=== PATIENT | male | born 1955 | race Caucasian/White ===

== ENCOUNTER 2021-11-29 18:17 | Inpatient (IN) | payer MEDICARE, OTHER ==
[~2021-11-29] VITALS: Ht 172.7 cm; Wt 92.5 kg
--- NOTE | 2021-11-29 18:40 | NUR ---
TONY FROM HOME FOR PSYCH EVAL, DAUGHTER IS SCARED THAT PT MIGHT HURT HIMSELF, PT DID NOT VERBALIZE SI. THE PATIENT DENIES HI. DENIES HAVING VISUAL/AUDITORY HALLUCINATIONS AT THIS TIME. IN ROOM AIR AND DENIES SOB. RESPIRATION REGULAR AND UNLABORED. DENIES PAIN. WILL CONTINUE TO MONITOR THE PATIENT. SITTER AT THE BEDSIDE.
--- NOTE | 2021-11-29 18:48 | NUR ---
COVID TEST COLLECTED AND SENT
--- NOTE | 2021-11-29 18:50 | NUR ---
IV LINE IS ESTABLISHED, BLOOD SPECIMEN COLLECTED AND SENT TO THE LAB. THE LINE IS SALINE LOCKED.
--- NOTE | 2021-11-29 19:00 | NUR ---
PT UNABLE TO PROVIDE URINE AT THIS TIME, PROVIDED WITH WATER, DAUGHTER AT BEDSIDE ENCOURAGING HIM TO PROVIDE URINE SAMPLE
--- NOTE | 2021-11-29 19:04 | NUR ---
THE PATIENT IS TAKEN TO CT [facility]IA [facility]
--- NOTE | 2021-11-29 19:13 | NUR ---
THE PATIENT IS BACK FROM [facility]IA [facility]
[2021-11-29 19:20] LABS: SERUM AMMONIA 13 umol/L (11-32)
[2021-11-29 19:25] LABS: ALANINE AMINOTRANSFERASE 21 U/L (12-78); ALBUMIN 4.2 g/dL (3.4-5.0); ALKALINE PHOSPHATASE 128 U/L (46-116); ASPARTATE AMINOTRANSFERASE 9 U/L (15-37); BILIRUBIN,DIRECT 0.1 mg/dL (0.0-0.2); BILIRUBIN,TOTAL 0.5 mg/dL (0.2-1.0); CALCIUM, SERUM 9.5 mg/dL (8.5-10.1); CARBON DIOXIDE 26 mmol/L (21-32); CHLORIDE 105 mmol/L (98-107); CREATININE 1.4 mg/dL (0.6-1.3); GLUCOSE 118 mg/dL (74-106); SODIUM SERUM 143 mmol/L (136-145); TOTAL PROTEIN, SERUM 7.6 g/dL (6.4-8.2); UREA NITROGEN, BLOOD 19 mg/dL (7-18)
[2021-11-29 19:57] LABS: BASOPHILS # (AUTO) 0.1 K/uL (0.0-0.2); BASOPHILS % (AUTO) 0.8 % (0.0-2.0); EOSINOPHILS % (AUTO) 0.8 % (0.0-6.0); HEMATOCRIT 53 % (39-51); HEMOGLOBIN 17.7 g/dL (13.5-17.5); LYMPHOCYTES # (AUTO) 1.8 K/uL (0.8-4.8); LYMPHOCYTES % (AUTO) 18.8 % (20.0-44.0); MEAN CORPUSCULAR HGB CONC 34 g/dl (31.0-36.0); MEAN CORPUSCULAR VOLUME 93 fL (80-96); MONOCYTES # (AUTO) 0.8 K/uL (0.1-1.30); MONOCYTES % (AUTO) 8.6 % (2.0-12.0); NEUTROPHILS # (AUTO) 6.8 K/uL (1.8-8.9); PLATELET COUNT (AUTO) 309 K/uL (150-450); RED BLOOD CELL COUNT(AUTO) 5.66 MIL/uL (4.5-6.0); WHITE BLOOD COUNT (AUTO) 9.5 K/uL (4.3-11.0)
[2021-11-29] MEDS ORDERED: IV NS 0.9% 1,000 ML BAG IV ONE (20:00)
[2021-11-29 20:26] LABS: EOSINOPHILS % (MANUAL) 1 % (0-4); LYMPHOCYTES % (MANUAL) 30 % (16-48); MONOCYTES % (MANUAL) 4 % (0-11.0); NEUTROPHILS % (MANUAL) 65 (42-76)
--- NOTE | 2021-11-29 21:01 | NUR ---
PT IS SLEEPING , EASILY AROUSABLE WITH VERBAL STIMULI. CONNECTED TO MONITOR. SITTER IN SIGHT. WILL CONTINUE TO MONITOR.
--- NOTE | 2021-11-30 00:56 | NUR ---
PROVIDED PT WITH FOOD AND DRINK. WILL CONTINUE TO MONITOR
--- NOTE | 2021-11-30 01:06 | NUR ---
URINE SAMPLE COLLECTED AND SENT TO LAB
[2021-11-30] MEDS ORDERED: SIMV10TA98 PO (01:19)
[2021-11-30] MEDS ORDERED: LISI20TA30 PO (01:19)
--- NOTE | 2021-11-30 01:34 | NUR ---
report given to nathen melo for ricarda
[2021-11-30 02:55] LABS: BILIRUBIN,URINE NEGATIVE (NEGATIVE); COLOR,URINE YELLOW (YELLOW); LEUKOCYTE ESTERASE ,URINE NEGATIVE (NEGATIVE); NITRITE, URINE NEGATIVE (NEGATIVE); PROTEIN,URINE NEGATIVE (NEGATIVE); UGLUCOSE NEGATIVE (NEGATIVE); UROBILINOGEN,URINE 0.2 EU/dL (0.2)
[2021-11-30 03:37] VITALS: BP 152/95
--- NOTE | 2021-11-30 03:38 | NUR ---
PT TRANSPORTED TO UNIT ON WHEELCHAIR WITH EMT. PT IS IN STABLE CONDITION FOR TRANSPORT.
--- NOTE | 2021-11-30 03:40 | NUR ---
GPS ADMISSION NOTE PER HOLD, PATIENT BEING ADMITTED FROM ER FOR EXHIBITING BIZARRE AND STRANGE BEHAVIOR AT HOME AND SENDING BIZARRE TEXT MESSAGES AND VOICE MAILS TO HIS DAUGHTER STATING THAT HE FEELS LIKE HE IS IN HEAVEN. DAUGHTER MICHELE IS SCARED THAT HE MIGHT HURT HIMSELF. HE LIVES ALONE AT HOME. PATIENT CURRENTLY HAS A 5150 HOLD FOR GRAVE DISABILITY. UPON FACE TO FACE ASSESSMENT PATIENT IS A/O X 3 AT THIS TIME. PATIENT IS ON RA, TOLERATING WELL, NO SOB OR RESPIRATORY DISTRESS NOTED. BREATHING EVEN AND UNLABORED. PATIENT HAS A FLAT AFFECT, POOR EYE CONTACT, GUARDED, JITTERY, DISORGANIZED, AND APPEARS DISHEVELED. PATIENT STATES THAT HE'S DEPRESSED, DENIES ANY SUICIDAL IDEATION OR HOMICIDAL IDEATION A THIS TIME. PATIENT ADVISED OF HIS HOLD AND PATIENT RIGHTS BOOKLET GIVEN. PATIENT IS UNDER THE PSYCHIATRIC CARE OF DR. SOLO AND MEDICAL CARE OF KARLA BEAN. ALL BELONGINGS INVENTORIED AND CHECKED FOR CONTRABAND. ALL CONTRABAND REMOVED AND STORED IN PATIENT HALLWAY LOCKER. ALL NECESSARY PAPER WORK SIGNED AND COMPLETED. PATIENT ORIENTED TO ROOM, FLOOR, RN, AND COMSEC MANAGER. SAFETY MEASURES IMPLEMENTED: BED LOCKED AND IN LOWEST POSITION, CALL LIGHT WITHIN REACH, SIDE RAILS UP X 2, AND BED ALARM ON. WILL MONITOR PATIENT Q 15 MIN FOR PATIENT SAFETY AND MONITOR BEHAVIOR.
[2021-11-30] MEDS ORDERED: AMLO-213 PO (04:19)
[2021-11-30] MEDS ORDERED: MAG HYDROX/AL HYDROX/SIMETH 30 ML UDC PO PRN (04:30)
[2021-11-30] MEDS ORDERED: ACETAMINOPHEN 325 MG TABLET PO PRN (04:30)
[2021-11-30] MEDS ORDERED: ZOLPIDEM TARTRATE 5 MG TABLET PO PRN (04:30)
[2021-11-30] MEDS ORDERED: MAGNESIUM HYDROXIDE 30 ML UDC PO PRN (04:30)
[2021-11-30] MEDS ORDERED: LORAZEPAM 1 MG TABLET PO PRN (04:30)
[2021-11-30] MEDS ORDERED: BLOOD SUGAR DIAGNOSTIC 1 EACH STRIP IN ONE (04:30)
[2021-11-30 08:00] VITALS: BP 126/90
[2021-11-30 16:00] VITALS: BP 134/74
[2021-11-30] MEDS: SIMVASTATIN 10 MG TABLET PO SCH (18:03)
--- NOTE | 2021-11-30 19:13 | NUR ---
RN-NOTES PATIENT VISIBLE IN THE UNIT CALM,COOPERATIVE,DENIES SI/HI. ABLE TO MAKE NEEDS KNOWN TO THE STAFF. AMBULATORY STEADY GAIT.ALL NEEDS ATTENDED AND MET. WILL ENDORSE TO INCOMING SHIFT FOR CONTINUITY OF CARE.
--- NOTE | 2021-11-30 19:30 | NUR ---
GPS RN NOTE, RECEIVED PATIENT AWAKE AND IN BED, NO S/S OR COMPLAINTS OF PAIN AT THIS TIME. PATIENT IS DISPLAYING NO S/S OF APPARENT DISTRESS AT THIS TIME. PATIENT BREATHING IS UNLABORED WITH EQUAL RISE AND FALL OF THE CHEST. PATIENT IS ALERT AND ORIENTED X 3 ON ROOM AIR WITH A SPO2 96%. PATIENT IS COMPLIANT WITH MEDICATIONS, ANXIOUS, RESTLESS, AND COOPERATIVE. PATIENT DENIES SUICIDAL AND HOMICIDAL IDEATIONS AT THIS TIME. PATIENT ASSISTED WITH TURNING AND REPOSITIONING Q2HR AND PRN FOR COMFORT AND CIRCULATION. PATIENT HAS NO NEEDS AT THIS TIME. PATIENT EDUCATED ON THE USE OF THE CALL HICKS. PATIENT BED SIDE RAILS UP X 2 FOR SAFETY. PATIENT BED IS LOCKED, LOW, WITH BED ALARM ON. WILL CONTINUE TO MONITOR THIS PATIENT Q15 MINUTES WITH THE HELP OF STAFF TO MAINTAIN SAFETY.
[2021-11-30 20:13] VITALS: BP 147/95
[2021-12-01 07:29] LABS: BASOPHILS # (AUTO) 0.1 K/uL (0.0-0.2); BASOPHILS % (AUTO) 1.1 % (0.0-2.0); EOSINOPHILS % (AUTO) 1.4 % (0.0-6.0); HEMATOCRIT 48 % (39-51); HEMOGLOBIN 16.1 g/dL (13.5-17.5); LYMPHOCYTES # (AUTO) 2.1 K/uL (0.8-4.8); LYMPHOCYTES % (AUTO) 23.4 % (20.0-44.0); MEAN CORPUSCULAR HGB CONC 33 g/dl (31.0-36.0); MEAN CORPUSCULAR VOLUME 93 fL (80-96); MONOCYTES # (AUTO) 0.9 K/uL (0.1-1.30); MONOCYTES % (AUTO) 10.8 % (2.0-12.0); NEUTROPHILS # (AUTO) 5.6 K/uL (1.8-8.9); NEUTROPHILS % (AUTO) 63.3 % (43.0-81.0); PLATELET COUNT (AUTO) 253 K/uL (150-450); RED BLOOD CELL COUNT(AUTO) 5.18 MIL/uL (4.5-6.0); WHITE BLOOD COUNT (AUTO) 8.8 K/uL (4.3-11.0)
[2021-12-01 07:46] LABS: CALCIUM, SERUM 9.3 mg/dL (8.5-10.1); CREATININE 1.3 mg/dL (0.6-1.3); POTASSIUM 3.9 mmol/L (3.5-5.1)
[2021-12-01 08:00] VITALS: BP 163/101
[2021-12-01] MEDS: AMLODIPINE BESYLATE 10 MG TABLET PO SCH (08:34)
--- NOTE | 2021-12-01 09:19 | NUR ---
RN-CO :PATIENT DENIES PAIN AND DISCOMFORTS, HE IS UNKEMPT AND DISHEVELED. HE TOOK HIS MEDICATIONS. HE IS UNMOTIVATED TO SELFCARE. I WILL CONTINUE TO MONITOR.:
[2021-12-01 16:00] VITALS: BP 159/99
[2021-12-01] MEDS: SIMVASTATIN 10 MG TABLET PO SCH (17:14)
[2021-12-01 20:11] VITALS: BP 149/85
[2021-12-02 08:00] VITALS: BP 155/95
[2021-12-02 08:13] VITALS: BP 155/95
[2021-12-02] MEDS: AMLODIPINE BESYLATE 10 MG TABLET PO SCH (08:13)
--- NOTE | 2021-12-02 09:26 | NUR ---
DISCHARGE NOTE: Patient will be discharged back home located at [address] [place] [address]; ([phone]). Patients daughter Lisa ([phone]) will picker machine operator pt at 1PM. Patient denies visual/auditory hallucinations. Patient denies suicidal or homicidal ideation. Patient is alert and oriented x4. Patient referred to [facility] for primary doctor located at [address], [address], [place] [address] ([phone]). Patient was referred for intake evaluation at [facility] located at [address], [place] [address]; ([phone]).
--- NOTE | 2021-12-02 09:27 | NUR ---
RN-CO: RECEIVED PATIENT AWAKE, CALM AND COOPERATIVDE TO CARE. DENIED PAIN AND DISCOMFORTS. PT DENIES SUICIDAL AND HOMICIDAL IDEATIONS. DENIES AUDITORY AND VISUAL HALLUCINATIONS. NO DISTRESS NOTED. DR SOLO SEEN AND EXAMINED THE PT WITH ORDERS TO DISCONTINUE HOLD AND DISCHARGE PATIENT TODAY.
--- NOTE | 2021-12-02 09:37 | NUR ---
TAL Clinical Note: Pt placed on a 5150 hold for GD. Pt was bizarre at home and daughter was concerned. Pt will return back home located at [address] [place] [address] ([phone]).
--- NOTE | 2021-12-02 09:37 | NUR ---
TAL Initial Discharge Note: Patient currently resides at home located at [address] [place] [address]; ([phone]). Patient lives alone and would want to return back home. TAL spoke with patient's daughter Lisa ([phone]) and discussed treatment and discharge plan. TAL will work with the MD, treatment team, and family to help coordinate appropriate discharge.
--- NOTE | 2021-12-02 09:37 | NUR ---
SW Family Contact: SW spoke with patient's daughter Lisa ([phone]) and discussed treatment and discharge plan.
--- NOTE | 2021-12-02 09:38 | NUR ---
Treatment Plan: Pt refused to sign treatment plan and stated he is not "mental".
--- NOTE | 2021-12-02 09:48 | NUR ---
Social Work Note/Substance Abuse Intervention: Patient was provided with a brief substance abuse intervention and referred to [facility] ([phone]), [facility] ([phone]), and [facility] ([phone]) for smoking and drinking. Resources were given.
--- NOTE | 2021-12-02 13:30 | NUR ---
Patient discharged home in stable condition.Compliant with medications ,cooperative with treatment plans Patient denies SI/HI/AVH Behavior improved ,psychiatric tx plans met ,medical tx plans differed for for continual monitoring .Educated pt about after care plan (Exit -care)and copy provided Returned personal belongings to patient med list and prescription given and explained to patient able to verbalize understanding .Vs stable ,no c/o pain .Patient seen by and with discharge orders .Patient discharge at 1330 with daughter .
== END 2021-12-02 13:30 | disposition home or self-care (01) | DRG 885 ==
LOC: ER 18:19 → GPS 11-30 01:34
PROVIDERS: ADMIT Psychiatry & Neurology Psychiatry; ATTEND Student in an Organized Health Care Education/Training Program
DX: F29 Unspecified psychosis not due to a substance or known physiological condition (principal); N17.0 Acute kidney failure with tubular necrosis; N18.9 Chronic kidney disease, unspecified; Z79.899 Other long term (current) drug therapy; F19.959 Other psychoactive substance use, unspecified with psychoactive substance-induced psychotic disorder, unspecified; Z87.891 Personal history of nicotine dependence; D32.9 Benign neoplasm of meninges, unspecified; Z88.0 Allergy status to penicillin; E78.5 Hyperlipidemia, unspecified; I12.9 Hypertensive chronic kidney disease with stage 1 through stage 4 chronic kidney disease, or unspecified chronic kidney disease; R73.9 Hyperglycemia, unspecified
CPT/HCPCS: 36415; 70450-TC; 71045-TC; 80048-TC; 80061-TC; 80076-TC; 82140-TC; 82962-TC; 84443-TC; 84484-TC; 85025-TC; 87081-TC; C9803; J7030